=== PATIENT | male | born 1950 | race Caucasian/White ===

== ENCOUNTER 2016-12-11 08:24 | Day surgery (SDC) | payer BC ==
[2016-12-10 15:38] VITALS: BMI 29.9
[2016-12-11] MEDS ORDERED: MIDAZOLAM HCL 2 MG/2 ML SINGLE DOSE VIAL ONE ×2 (10:02→10:15)
[2016-12-11] MEDS ORDERED: LEVOFLOXACIN 500 MG PREMIX BAG IVPB ONE (10:06)
[2016-12-11] MEDS ORDERED: LEVOFLOXACIN 500 MG IVPB 100 ML IVPB ONE (10:06)
[2016-12-11] MEDS ORDERED: FUROSEMIDE 40 MG/4 ML INJECTABLE VIAL ONE (11:10)
--- NOTE | 2016-12-11 11:53 | OP ---
DATE OF OPERATION: 12/11/2016 PREOPERATIVE DIAGNOSIS: Benign prostatic hypertrophy with gross hematuria. POSTOPERATIVE DIAGNOSIS: Benign prostatic hyperplasia with gross hematuria. PROCEDURE: Cystoscopy, transurethral vaporization of prostate. SURGEON: Magdiel Silvestre MD INDICATION: Patient is a 66-year-old male with history of very large prostate status post TURP in the past, has had recurrent gross hematuria secondary to the BPH tissue as well as obstructive urinary symptoms. After reviewing treatment options, patient elected to undergo bipolar TURVP, understood the risks of bleeding, infection, impotence, incontinence, stricture formation, persistence of hematuria, potential need for additional procedure in light of the large gland. DESCRIPTION OF PROCEDURE: After informed consent was obtained, the patient was taken to the OR and placed supine on the table. After cardiac monitoring had been administered, a spinal anesthetic was then given. He was prepped and draped in the dorsal lithotomy position. A 26-sheath resectoscope was inserted into the urethra without difficulty. Anterior urethra was normal. The prostatic urethra was 4 cm and visually occlusive, lateral lobes. The median lobe had already been treated in the past. There were no tumors or stones noted in the bladder. Bilateral ureteral orifices were seen in normal anatomic position. At this point, using the bipolar PlasmaButton, the lateral tissue was vaporized circumferentially until a wide-open channel was created. There was no vaporization within 1 cm of the verumontanum to minimize incontinence. Prostate tissue was removed with the Ellik evacuator. All bleeding sites were cauterized. With the resectoscope situated just past the verumontanum, there was a wide-open channel noted into the bladder. There was no evidence of any injury to any adjacent structures. The resector was then removed and a 24-[place] Acosta was then placed to straight drainage. [place]-tinged urine was retrieved. The patient was awakened from anesthesia and transferred to the recovery room in stable condition. There were no complications. Estimated blood loss was minimal. MAGDIEL SILVESTRE M.D. [id number]
[2016-12-11] MEDS: ELECTROLYTE-148 SOLN 1,000 ML IV SCH ×2 (15:08→22:00)
[2016-12-11] MEDS: oxyCODONE HCL 5 MG TABLET PO PRN (22:03)
[2016-12-12 06:30] VITALS: BP 135/71; PULSE 68; TEMP 99.2
[2016-12-12] MEDS: oxyCODONE HCL 5 MG TABLET PO PRN (07:30)
[2016-12-12] MEDS ORDERED: LEVOFLOXACIN 500 MG TABLET (FP) PO SCH (10:00)
--- NOTE | 2016-12-15 10:30 | PATH ---
Surgical Pathology Report Patient Name: RAINER SHER [facility]. Rec. #: [id number] /Age/Gender: 1950 (Age: 66) / M Account: [id number] Location: AMBULATORY SURG Taken: 12/11/2016 Received: 12/11/2016 Reported: 12/15/2016 Physicians: Gutierrez Blue M.D. Specimen(s) Received PROSTATE CHIPS Clinical History Urinary retention Final Diagnosis PROSTATE, TRANSURETHRAL RESECTION OF THE PROSTATE: BENIGN PROSTATIC TISSUE WITH MARKED CAUTERY ARTIFACT, FOCAL CYSTIC CHANGES, ACINAR ATROPHY AND STROMAL HYPERPLASIA. Electronically Signed Taryn Bah M.D. Gross Description Received in formalin labeled "prostate chips," is a 1.8 x 0.8 x 0.3 cm aggregate of bell soft tissue fragments. The formalin is filtered and the specimen is entirely submitted in one cassette. /12/11/2016 saudi12/11/2016
== END 2016-12-12 14:40 | disposition home health service (06) ==
LOC: JASUSAT 08:24 → JASU-SURG 08:24 → J6S 14:50 → JASUSAT 12-12 14:40
PROVIDERS: ATTEND Urology
PROC: 0VT08ZZ Resection of Prostate, Via Natural or Artificial Opening Endoscopic (ICD-10-PCS; principal; 2016-12-11 10:00)
DX: N40.1 Benign prostatic hyperplasia with lower urinary tract symptoms (principal); R31.0 Gross hematuria
CPT/HCPCS: 88305-TC; 94760

== ENCOUNTER 2017-07-03 07:34 | Day surgery (SDC) | payer BC ==
[2017-07-03 08:26] VITALS: BMI 31.6
--- NOTE | 2017-07-03 09:11 | PROC ---
Endoscopy Procedure Endoscopy procedure completed. Please see scanned procedure report.
[2017-07-03 09:50] VITALS: TEMP 97.7
[2017-07-03 11:19] VITALS: BP 110/61; PULSE 63
== END 2017-07-03 11:20 | disposition home or self-care (01) ==
LOC: JASU-ENDO 07:34
PROVIDERS: ATTEND Internal Medicine Gastroenterology
PROC: 0DJD8ZZ Inspection of Lower Intestinal Tract, Via Natural or Artificial Opening Endoscopic (ICD-10-PCS; principal; 2017-07-03 09:00)
DX: Z12.11 Encounter for screening for malignant neoplasm of colon (principal); K64.8 Other hemorrhoids

== ENCOUNTER 2021-04-14 15:59 | Emergency (ER) | payer BC ==
[2021-04-14 16:09] VITALS: TEMP 98.1; BMI 31.6
[2021-04-14 16:37] VITALS: BP 156/97; PULSE 94
[2021-04-14 16:53] LABS: EPI CELLS 3 /uL (0-25.1); HYALINE CASTS 1 /uL (0-3.1); URINE APPEARANCE CLEAR; URINE BACTERIA 5 /uL (0-1359); URINE BILIRUBIN NEGATIVE (NEGATIVE); URINE COLOR ORANGE; URINE GLUCOSE (UA) NEGATIVE (NEGATIVE); URINE KETONE NEGATIVE (NEGATIVE); URINE LEUK ESTERASE NEGATIVE (NEGATIVE); URINE NITRITE NEGATIVE (NEGATIVE); URINE PROTEIN 1+ (NEGATIVE); URINE RBC 259 /uL (0-23.9); URINE UROBILINOGEN 0.2 mg/dL (0.2-1.0); URINE WBC 17 /uL (0-25.8)
[2021-04-14 16:55] LABS: BASO % 0.5 % (0-2.0); EOS % 0.4 % (0-4.5); HEMATOCRIT 40.9 % (35.4-49); LYMPH % 26.2 % (8-40); MCH 30.4 pg (25.7-33.7); MCHC 34.1 g/dl (32.0-35.9); MEAN CELL VOLUME 89.2 fl (80-96); MEAN PLT VOLUME 8.3 fl (7.5-11.1); MONO % 7.7 % (3.8-10.2); NEUT % 65.2 % (42.8-82.8); PLATELET COUNT 216 10^3/uL (134-434); RBC 4.59 M/mm3 (4.00-5.60); WHITE BLOOD COUNT 6.4 K/mm3 (4.0-10.0)
[2021-04-14 17:15] LABS: ALBUMIN 3.7 g/dl (3.4-5.0); BLOOD UREA NITROGEN 18.8 mg/dL (7-18); CALCIUM 8.9 mg/dL (8.5-10.1)
[2021-04-14 17:18] LABS: CREATININE 1.1 mg/dL (0.55-1.3)
[2021-04-14 17:21] LABS: BILIRUBIN,TOTAL 0.5 mg/dL (0.2-1); TOT PROT 7.1 g/dl (6.4-8.2)
== END 2021-04-14 17:31 | disposition home or self-care (01) ==
LOC: JER 15:59
DX: R31.9 Hematuria, unspecified (principal)
CPT/HCPCS: 36415; 80053; 81003; 82272; 85025; 86850; 86900; 86901; 87086; 99283-25

== ENCOUNTER 2023-11-06 09:07 | Inpatient (IN) | payer OTHER, BC ==
[2023-11-06 11:09] LABS: BASO % 0.4 % (0-2.0); EOS % 0.7 % (0-4.5); HEMATOCRIT 39.6 % (35.4-49); HEMOGLOBIN 13.4 GM/dL (11.7-16.9); LYMPH % 42.9 % (8-40); MCH 30.6 pg (25.7-33.7); MCHC 33.8 g/dl (32.0-35.9); MEAN CELL VOLUME 90.4 fl (80-96); MEAN PLT VOLUME 8.7 fl (7.5-11.1); MONO % 6.2 % (3.8-10.2); NEUT % 49.8 % (42.8-82.8); PLATELET COUNT 235 10^3/uL (134-434); RBC 4.38 M/mm3 (4.00-5.60); RDW 12.7 % (11.9-15.9); WHITE BLOOD COUNT 6.1 K/mm3 (4.0-10.0)
[2023-11-06 11:20] LABS: INR 0.95 (0.83-1.09); PROTHROMBIN TIME (PATIENT) 10.9 SEC (9.7-13.0)
[2023-11-06 11:22] LABS: ACTIVATED PTT 29.5 SECONDS (25.2-36.5); URINE APPEARANCE CLEAR; URINE BILIRUBIN 2+ (NEGATIVE); URINE COLOR RED; URINE GLUCOSE (UA) NEGATIVE (NEGATIVE); URINE KETONE NEGATIVE (NEGATIVE); URINE LEUK ESTERASE 2+ (NEGATIVE); URINE NITRITE POSITIVE (NEGATIVE); URINE PROTEIN 3+ (NEGATIVE); URINE UROBILINOGEN 0.2 mg/dL (0.2-1.0)
[2023-11-06 11:30] LABS: POTASSIUM 4.2 mmol/L (3.5-5.1)
[2023-11-06 11:32] LABS: ALBUMIN 3.9 g/dl (3.4-5.0); CALCIUM 9.1 mg/dL (8.5-10.1)
[2023-11-06 11:33] LABS: BLOOD UREA NITROGEN 7.3 mg/dL (7-18)
[2023-11-06 11:36] LABS: CREATININE 1.1 mg/dL (0.55-1.3)
[2023-11-06 11:37] LABS: BILIRUBIN,TOTAL 1.3 mg/dL (0.2-1); TOT PROT 7.2 g/dl (6.4-8.2)
[2023-11-06] MEDS ORDERED: CEFTRIAXONE 1 GM/50 ML BAG ONE (16:40)
[2023-11-06] MEDS ORDERED: TAMSULOSIN HCL 0.4 MG CAP ONE (16:40)
[2023-11-06] MEDS: TAMSULOSIN HCL 0.4 MG CAP PO ONE (16:50)
[2023-11-06] MEDS: CEFTRIAXONE 1,000 MG in DEXTROSE 5%-WATER - 50 ML IVPB ONE (16:51)
[2023-11-06 17:01] LABS: BASO % 0.4 % (0-2.0); EOS % 0.8 % (0-4.5); HEMATOCRIT 37.3 % (35.4-49); HEMOGLOBIN 12.7 GM/dL (11.7-16.9); LYMPH % 41.8 % (8-40); MCH 30.7 pg (25.7-33.7); MEAN CELL VOLUME 90.2 fl (80-96); MEAN PLT VOLUME 8.7 fl (7.5-11.1); MONO % 6.8 % (3.8-10.2); NEUT % 50.2 % (42.8-82.8); PLATELET COUNT 220 10^3/uL (134-434); RBC 4.14 M/mm3 (4.00-5.60); RDW 13.1 % (11.9-15.9); WHITE BLOOD COUNT 6.5 K/mm3 (4.0-10.0)
[2023-11-06 17:41] LABS: HIV INTERPRETATION NEGATIVE (NEGATIVE)
[2023-11-06] MEDS ORDERED: ACETAMINOPHEN INJECTION 100 ML ONE (18:12)
[2023-11-06] MEDS: ACETAMINOPHEN 1000 MG/100 ML BAG IVPB ONE (18:15)
[2023-11-06] MEDS ORDERED: ATORVASTATIN CA 20 MG TABLET (FP) ONE (22:30)
[2023-11-06] MEDS: ATORVASTATIN CA 10 MG TABLET (FP) PO SCH (22:45)
[2023-11-07 00:19] VITALS: BMI 29.2
[2023-11-07] MEDS: LEVOTHYROXINE NA 100 MCG TABLET (FP) PO SCH (06:22)
[2023-11-07 09:04] LABS: HEMATOCRIT 39.6 % (35.4-49); MCH 30.2 pg (25.7-33.7); MCHC 32.7 g/dl (32.0-35.9); MEAN CELL VOLUME 92.3 fl (80-96); MEAN PLT VOLUME 8.6 fl (7.5-11.1); PLATELET COUNT 234 10^3/uL (134-434); RBC 4.29 M/mm3 (4.00-5.60); RDW 12.9 % (11.9-15.9); WHITE BLOOD COUNT 8.3 K/mm3 (4.0-10.0)
[2023-11-07 09:32] LABS: POTASSIUM 3.9 mmol/L (3.5-5.1)
[2023-11-07 09:36] LABS: BLOOD UREA NITROGEN 9.2 mg/dL (7-18)
[2023-11-07] MEDS: FINASTERIDE 5 MG TABLET (FP) PO SCH (11:30)
[2023-11-07] MEDS: DONEPEZIL HCL 5 MG TABLET (FP) PO SCH (11:30)
[2023-11-07] MEDS: CEFTRIAXONE 1 GM in DEXTROSE 5%-WATER - 50 ML IVPB SCH (15:16)
[2023-11-08] MEDS: ACETAMINOPHEN 1000 MG/100 ML BAG IVPB ONE (12:18)
[2023-11-08] MEDS: MELATONIN 5 MG TABLETS PO ONE (22:32)
[2023-11-09] MEDS ORDERED: PROPOFOL 20 ML ONE (16:18)
[2023-11-09] MEDS ORDERED: SUCCINYLCHOLINE CHLORIDE 200 MG/10 ML SYRINGE ONE (16:36)
[2023-11-09] MEDS ORDERED: ONDANSETRON 4 MG/2 ML VIAL IVPUSH PRN (17:45)
[2023-11-09] MEDS: LACTATED RINGERS SOLUTION 1,000 ML IV SCH (17:55)
[2023-11-09] MEDS: ATORVASTATIN CA 10 MG TABLET (FP) PO SCH (21:17)
[2023-11-09] MEDS: ACETAMINOPHEN 1000 MG/100 ML BAG IVPB ONE (21:41)
[2023-11-10] MEDS: LEVOTHYROXINE NA 100 MCG TABLET (FP) PO SCH (06:36)
[2023-11-10] MEDS: ACETAMINOPHEN 1000 MG/100 ML BAG IVPB ONE (08:08)
[2023-11-10] MEDS: CEFTRIAXONE 1 GM in DEXTROSE 5%-WATER - 50 ML IVPB SCH (10:16)
[2023-11-10] MEDS: FINASTERIDE 5 MG TABLET (FP) PO SCH (10:16)
[2023-11-10] MEDS: DONEPEZIL HCL 5 MG TABLET (FP) PO SCH (10:16)
[2023-11-10] MEDS: ACETAMINOPHEN 1000 MG/100 ML BAG IVPB PRN (17:02)
[2023-11-11] MEDS: MELATONIN 5 MG TABLETS PO ONE ×2 (04:41→22:09)
[2023-11-11] MEDS: KETOROLAC TROMETHAMINE 30 MG/1 ML VIAL IVPUSH ONE ×2 (14:22→22:09)
[2023-11-11] MEDS: DOCUSATE SODIUM 100 MG CAPSULE (FP) PO SCH (14:22)
[2023-11-11] MEDS: POLYETHYLENE GLYCOL (HEALTHYLAX) 3350 17 GM PACKET PO SCH (14:22)
[2023-11-11] MEDS: CYCLOBENZAPRINE HCL 10 MG TABLET (FP) PO ONE (16:25)
[2023-11-11] MEDS: ONDANSETRON 4 MG/2 ML VIAL IVPUSH ONE (17:34)
[2023-11-11] MEDS: SENNOSIDES 8.6MG TABLET (FP) PO SCH (22:09)
[2023-11-12] MEDS: LIDOCAINE 5% TOPICAL PATCH TP SCH (04:09)
[2023-11-12] MEDS: LIDOCAINE PATCH REMOVAL MC SCH (22:30)
[2023-11-14] MEDS: MELATONIN 5 MG TABLETS PO ONE (04:30)
[2023-11-14 10:30] LABS: BASO % 0.9 % (0-2.0); EOS % 6.9 % (0-4.5); HEMATOCRIT 30.3 % (35.4-49); HEMOGLOBIN 10.1 GM/dL (11.7-16.9); LYMPH % 30.3 % (8-40); MCH 30.5 pg (25.7-33.7); MCHC 33.5 g/dl (32.0-35.9); MEAN PLT VOLUME 8.3 fl (7.5-11.1); MONO % 8.9 % (3.8-10.2); PLATELET COUNT 292 10^3/uL (134-434); RBC 3.33 M/mm3 (4.00-5.60); RDW 13.2 % (11.9-15.9); WHITE BLOOD COUNT 6.4 K/mm3 (4.0-10.0)
[2023-11-14 10:40] LABS: POTASSIUM 3.7 mmol/L (3.5-5.1)
[2023-11-14 10:43] LABS: ALBUMIN 3.3 g/dl (3.4-5.0); CALCIUM 8.9 mg/dL (8.5-10.1)
[2023-11-14 10:47] LABS: CREATININE 0.8 mg/dL (0.55-1.3)
[2023-11-14 10:48] LABS: BILIRUBIN,TOTAL 0.4 mg/dL (0.2-1); TOT PROT 6.7 g/dl (6.4-8.2)
[2023-11-14 15:21] VITALS: BP 138/78; PULSE 93; RESP 20; TEMP 98.1
== END 2023-11-14 14:30 | disposition home health service (06) | DRG 713 ==
LOC: JER 09:07 → JERBED 17:40 → J7W 11-07 02:34 → OBSVTOIN 11-09 11:29 → J7W 11-12 19:48
PROVIDERS: ADMIT Student in an Organized Health Care Education/Training Program
PROC: 0TCB8ZZ Extirpation of Matter from Bladder, Via Natural or Artificial Opening Endoscopic (ICD-10-PCS; 2023-11-09)
PROC: 0VB08ZZ Excision of Prostate, Via Natural or Artificial Opening Endoscopic (ICD-10-PCS; principal; 2023-11-09 15:00)
DX: N40.1 Benign prostatic hyperplasia with lower urinary tract symptoms (principal); N13.8 Other obstructive and reflux uropathy; F03.90 Unspecified dementia, unspecified severity, without behavioral disturbance, psychotic disturbance, mood disturbance, and anxiety; I10 Essential (primary) hypertension; E78.5 Hyperlipidemia, unspecified; R31.0 Gross hematuria
CPT/HCPCS: 36415; 74178-TC; 80048; 80053; 81003; 85025; 85027; 85610; 85730; 86803; 86850; 86900; 86901; 87086; 87389; 88305-TC; 94760; 97116-GP; 97162-GP; 99285-25; G0378; J0131; Q9967

== ENCOUNTER 2024-06-13 06:20 | Day surgery (SDC) | payer BC ==
[2024-06-10 13:53] VITALS: BMI 32.4
[2024-06-13 13:02] VITALS: BP 141/82; PULSE 60; RESP 15; TEMP 98
== END 2024-06-13 13:35 | disposition home or self-care (01) ==
LOC: JASU-ENDO 06:20
PROVIDERS: ATTEND Internal Medicine Gastroenterology
PROC: 0DB98ZX Excision of Duodenum, Via Natural or Artificial Opening Endoscopic, Diagnostic (ICD-10-PCS; 2024-06-13)
PROC: 0DB78ZX Excision of Stomach, Pylorus, Via Natural or Artificial Opening Endoscopic, Diagnostic (ICD-10-PCS; 2024-06-13)
PROC: 0DB68ZX Excision of Stomach, Via Natural or Artificial Opening Endoscopic, Diagnostic (ICD-10-PCS; 2024-06-13)
PROC: 0DJD8ZZ Inspection of Lower Intestinal Tract, Via Natural or Artificial Opening Endoscopic (ICD-10-PCS; principal; 2024-06-13 10:30)
DX: D50.9 Iron deficiency anemia, unspecified (principal); K57.30 Diverticulosis of large intestine without perforation or abscess without bleeding; K64.8 Other hemorrhoids; K29.50 Unspecified chronic gastritis without bleeding; K31.A12 Gastric intestinal metaplasia without dysplasia, involving the body (corpus)
CPT/HCPCS: 88305-TC; 88342-TC

== ENCOUNTER 2024-08-12 18:14 | Emergency (ER) | payer BC ==
[2024-08-12 18:22] VITALS: TEMP 98.6; BMI 29.7
[2024-08-12 19:38] VITALS: BP 145/80; PULSE 71; RESP 18
[2024-08-12] MEDS ORDERED: ACETAMINOPHEN 325 MG TABLET (FP) ONE (19:40)
[2024-08-12] MEDS: ACETAMINOPHEN 325 MG TABLET (FP) PO ONE (20:15)
[2024-08-12] MEDS: SODIUM CHLORIDE 0.9% 500 ML INFUS.BAG IV ONE (20:15)
[2024-08-12 20:46] LABS: ABSOLUTE IMMATURE GRANULOCYTES 0.01 x10^3/uL (0.0-0.031); BASOPHILS # 0.04 x10^3/uL (0.01-0.08); EOSINOPHIL % 1.2 % (0.8-7.0); EOSINOPHILS # 0.08 x10^3/uL (0.04-0.54); HEMATOCRIT 32.4 % (40.1-51.0); HEMOGLOBIN 9.2 g/dL (13.7-17.5); MCHC 28.4 g/dl (32.3-36.5); MEAN CELL VOLUME 73.3 fl (79.0-92.2); MEAN PLT VOLUME 9.8 fl (9.4-12.4); MONOCYTE # 0.52 x10^3/uL (0.30-0.82); PLATELET COUNT 266 x10^3/uL (163-337); RDW 17.7 % (12.2-16.6)
[2024-08-12 20:54] LABS: POTASSIUM 4.1 mmol/L (3.5-5.1)
[2024-08-12 20:55] LABS: CALCIUM 8.6 mg/dL (8.5-10.1)
[2024-08-12 20:56] LABS: ALBUMIN 3.5 g/dl (3.4-5.0); BLOOD UREA NITROGEN 18.2 mg/dL (7-18)
[2024-08-12 21:01] LABS: BILIRUBIN,TOTAL 0.6 mg/dL (0.2-1); TOT PROT 6.8 g/dl (6.4-8.2)
[2024-08-12 21:49] LABS: HIV INTERPRETATION NEGATIVE (NEGATIVE)
[2024-08-12 21:50] LABS: HCV DIAGNOSTIC IN-HOUSE W/RFLX NON-REACTIVE (NONREACTIVE)
== END 2024-08-12 22:53 | disposition home or self-care (01) ==
LOC: JER 18:14
DX: R00.2 Palpitations (principal); M79.605 Pain in left leg; H11.31 Conjunctival hemorrhage, right eye; I10 Essential (primary) hypertension; Z56.4 Discord with boss and workmates
CPT/HCPCS: 36415; 71046-TC-FY; 80053; 83735; 84439; 84443; 84484; 85025; 86803; 87389; 93005; 93010; 99285-25